=== PATIENT | female | born 1950 | race Caucasian/White ===

== ENCOUNTER 2018-02-15 06:16 | Day surgery (SDC) | payer OTHER ==
[~2018-02-15] VITALS: Ht 149.9 cm; Wt 62.6 kg
[2018-02-15] MEDS ORDERED: BUPIVACAINE-MPF 0.25% 30 ML VIAL INJ ONE (07:14)
[2018-02-15] MEDS ORDERED: DESFLURANE 240 ML BTL INH ONE (07:56)
[2018-02-15] MEDS ORDERED: GLYCOPYRROLATE 0.2 MG/ML VIAL ONE (07:56)
[2018-02-15] MEDS ORDERED: DEXAMETHASONE 4 MG/ML VIAL ONE (07:56)
[2018-02-15] MEDS ORDERED: SUCCINYLCHOLINE CHLORIDE 200 MG/10 ML VIAL IVP ONE (07:56)
[2018-02-15] MEDS ORDERED: ROCURONIUM 50 MG/5 ML VIAL IV ONE (07:56)
[2018-02-15] MEDS ORDERED: PHENYLEPHRINE 10 MG/ML VIAL ONE (07:56)
[2018-02-15] MEDS ORDERED: PROPOFOL 200 MG/20 ML VIAL IV ONE (07:56)
[2018-02-15] MEDS ORDERED: KETOROLAC 30 MG/ML VIAL ONE (07:56)
[2018-02-15] MEDS ORDERED: ONDANSETRON 4 MG/2 ML VIAL ONE (07:56)
[2018-02-15] MEDS ORDERED: HYDROmorphone PFS 2 MG/ML SYR ONE (07:59)
[2018-02-15] MEDS ORDERED: fentaNYL 0.05 MG/ML VIAL ONE (07:59)
[2018-02-15] MEDS ORDERED: ceFAZolin 1,000 MG VIAL ONE (08:11)
[2018-02-15] MEDS ORDERED: MORPHINE SULFATE 4 MG/ML SYR IV PRN (09:15)
[2018-02-15] MEDS ORDERED: ONDANSETRON 4 MG/2 ML VIAL IV PRN (09:15)
[2018-02-15] MEDS ORDERED: HYDROmorphone 1 MG/ML AMP IVP PRN (09:15)
[2018-02-15] MEDS ORDERED: HYDROcodone/APAP 5/325 MG 1 TAB TAB PO PRN (09:15)
[2018-02-15] MEDS ORDERED: MORPHINE SULFATE 2 MG/ML SYR IVP PRN (09:15)
[2018-02-15] MEDS ORDERED: ACETAMINOPHEN 325 MG TAB PO PRN (09:15)
== END 2018-02-15 11:18 | disposition home or self-care (01) ==
LOC: MDS 06:16 → MMU 06:16 → MDS 11:18
PROVIDERS: ATTEND Surgery
DX: K43.2 Incisional hernia without obstruction or gangrene (principal); E66.8 Other obesity; E66.3 Overweight; E78.5 Hyperlipidemia, unspecified; M19.90 Unspecified osteoarthritis, unspecified site; Z79.899 Other long term (current) drug therapy
CPT/HCPCS: 49565; 71045; 93005; C1781; J0330; J0690; J1100; J1170; J1885; J2370; J2405; J2704; J3010; J3490; J7060; J7120